=== PATIENT | female | born 1950 | race Caucasian/White ===

== ENCOUNTER 2018-07-24 10:04 | Outpatient (CLI) | payer MEDICARE, OTHER | END 2018-07-24 10:05 | disposition home or self-care (01) | LOC: BICMAMMO 10:04 | PROVIDERS: ATTEND Obstetrics & Gynecology | DX: Z08 Encounter for follow-up examination after completed treatment for malignant neoplasm (principal); Z85.3 Personal history of malignant neoplasm of breast | CPT/HCPCS: 77066; G0279 ==

== ENCOUNTER 2019-08-05 13:00 | Outpatient (CLI) | payer MEDICARE, OTHER ==
--- NOTE | 2019-08-05 14:58 | MMO ---
Bilateral MAMMO Bilat Screen [facility]. CLINICAL HISTORY: Patient is 69 years old and is seen for screening. The patient has no family history of breast cancer. The patient has a history of malignant (generic) in the left breast in 2012. 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 VIEWS: The views performed were: bilateral craniocaudal with tomosynthesis and bilateral mediolateral oblique with tomosynthesis. FILMS COMPARED: The present examination has been compared to prior imaging studies performed at [facility] on 07/24/2018, and at [facility] on 08/12/2013, 08/16/2014 and 08/10/2015. This study has been interpreted with the assistance of computer-aided detection. MAMMOGRAM FINDINGS: There are scattered fibroglandular densities. Right breast: There are no suspicious masses, calcifications or areas of architectural distortion. There are benign appearing calcifications in the right breast. Left breast: There are stable post-operative changes. There are no suspicious masses, suspicious calcifications, or new areas of architectural distortion. IMPRESSION: THERE IS NO MAMMOGRAPHIC EVIDENCE OF MALIGNANCY. A ROUTINE FOLLOW-UP MAMMOGRAM IN 1 YEAR IS RECOMMENDED. THE RESULTS OF THIS EXAM WERE SENT TO THE PATIENT. ACR BI-RADS Category 2 - Benign finding MAMMOGRAPHY NOTE: 1. A negative mammogram report should not delay a biopsy if a dominant of clinically suspicious mass is present. 2. Approximately 10% to 15% of breast cancers are not detected by mammography. 3. Adenosis and dense breasts may obscure an underlying neoplasm. Reported by: DULCE JOHNSON MD Electonically Signed: [id number]
== END 2019-08-05 13:01 | disposition home or self-care (01) ==
LOC: BICMAMMO 13:00
PROVIDERS: ATTEND Physician Assistant
DX: Z12.31 Encounter for screening mammogram for malignant neoplasm of breast (principal); Z85.3 Personal history of malignant neoplasm of breast
CPT/HCPCS: 77063; 77067

== ENCOUNTER 2020-05-24 12:24 | Outpatient (CLI) | payer MEDICARE, OTHER ==
--- NOTE | 2020-05-24 14:27 | MRI ---
MRI LUMBAR SPINE WITHOUT CONTRAST: 05/24/20 INDICATIONS: Lumbar pain. FINDINGS: The lumbar vertebrae maintain normal height and alignment. The vertebral body signal is normal. Degenerative disc changes are noted at L4-5 and L5-S1. Loss of disc space is pronounced at L5-S1. The disc above L4 are preserved. Findings at each level are noted. L1-2: No significant disc bulge. Mild facet arthrosis. No central canal or foraminal stenosis. L2-3: No significant disc bulge. Mild facet arthrosis. No central canal or foraminal stenosis. L3-4: Very mild disc bulge. Moderate facet arthrosis and hypertrophy. No significant central canal or foraminal stenosis. L4-5: There is an annular fissure and a central disc protrusion compressing the thecal sac. Prominent facet and ligamentous hypertrophy. These changes compress the thecal sac resulting in moderate centr al canal stenosis. There appears to be slight superior migration of the disc protrusion seen paracent rally on the left with signal seen extending superiorly along the posterior L4 vertebra in the anteri or spinal canal. No significant foraminal stenosis. L5-S1: There is annular tear with central disc protrusion which abuts the anterior thecal sac and di splaces both traversing S1 nerve roots. There is an associated osteophyte projecting from the posterior superior margin of the S1 vertebrae a t the L5-S1 disc which projects into the spinal canal in conjunction with the small disc protrusion. This osteophyte significantly displaces the traversing left S1 nerve root. No significant central can al stenosis. Mild foraminal encroachment due to the disc bulge and hypertrophic change slightly more prominent on the left. IMPRESSION: There are disc protrusions at L4-5 and L5-S1 as described. POS: AGW
== END 2020-05-24 12:25 | disposition home or self-care (01) ==
LOC: BICMRI 12:24
PROVIDERS: ATTEND Registered Nurse
DX: M54.31 Sciatica, right side (principal); M54.5 Low back pain; M51.26 Other intervertebral disc displacement, lumbar region; M51.27 Other intervertebral disc displacement, lumbosacral region
CPT/HCPCS: 72148

== ENCOUNTER 2020-08-09 12:10 | Outpatient (CLI) | payer MEDICARE, OTHER ==
--- NOTE | 2020-08-09 12:50 | MMO ---
Bilateral MAMMO Bilat Screen [facility]. CLINICAL HISTORY: Patient is 70 years old and is seen for screening. The patient has no family history of breast cancer. The patient has a history of malignant (generic) in the left breast in 2012. 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 VIEWS: The views performed were: bilateral craniocaudal with tomosynthesis and bilateral mediolateral oblique with tomosynthesis. FILMS COMPARED: The present examination has been compared to prior imaging studies performed at [place] [facility] on 07/24/2018 and 08/05/2019, and at [facility] on 08/16/2014 and 08/10/2015. This study has been interpreted with the assistance of computer-aided detection. MAMMOGRAM FINDINGS: There are scattered fibroglandular densities. Finding 1: There are stable benign appearing calcifications seen in both breasts. Finding 2: There are stable post operative changes seen in the left breast. There are no suspicious masses, suspicious calcifications, or new areas of architectural distortion. IMPRESSION: THERE IS NO MAMMOGRAPHIC EVIDENCE OF MALIGNANCY. A ROUTINE FOLLOW-UP MAMMOGRAM IN 1 YEAR IS RECOMMENDED. THE RESULTS OF THIS EXAM WERE SENT TO THE PATIENT. ACR BI-RADS Category 2 - Benign finding MAMMOGRAPHY NOTE: 1. A negative mammogram report should not delay a biopsy if a dominant of clinically suspicious mass is present. 2. Approximately 10% to 15% of breast cancers are not detected by mammography. 3. Adenosis and dense breasts may obscure an underlying neoplasm. Reported by: INO CUELLAR MD Electonically Signed: [id number]
== END 2020-08-09 12:11 | disposition home or self-care (01) ==
LOC: BICMAMMO 12:10
PROVIDERS: ATTEND Registered Nurse
DX: Z12.31 Encounter for screening mammogram for malignant neoplasm of breast (principal); Z85.3 Personal history of malignant neoplasm of breast
CPT/HCPCS: 77063; 77067

== ENCOUNTER 2021-08-10 12:08 | Outpatient (CLI) | payer MEDICARE | END 2021-08-10 12:09 | disposition home or self-care (01) | LOC: BICMAMMO 12:08 | PROVIDERS: ATTEND Registered Nurse | DX: Z12.31 Encounter for screening mammogram for malignant neoplasm of breast (principal); Z13.820 Encounter for screening for osteoporosis; Z78.0 Asymptomatic menopausal state; Z85.3 Personal history of malignant neoplasm of breast; Z98.890 Other specified postprocedural states | CPT/HCPCS: 77063; 77067; 77080 ==

== ENCOUNTER 2022-08-13 12:00 | Outpatient (CLI) | payer MEDICARE, OTHER | END 2022-08-13 12:01 | disposition home or self-care (01) | LOC: BICMAMMO 12:00 | PROVIDERS: ATTEND Registered Nurse | DX: Z12.31 Encounter for screening mammogram for malignant neoplasm of breast (principal); Z98.890 Other specified postprocedural states; Z85.3 Personal history of malignant neoplasm of breast | CPT/HCPCS: 77063; 77067 ==

== ENCOUNTER 2023-09-11 12:47 | Outpatient (CLI) | payer MEDICARE | END 2023-09-11 12:48 | disposition home or self-care (01) | LOC: BICMAMMO 12:47 | PROVIDERS: ATTEND Registered Nurse | DX: Z12.31 Encounter for screening mammogram for malignant neoplasm of breast (principal); Z13.820 Encounter for screening for osteoporosis; Z78.0 Asymptomatic menopausal state; Z85.3 Personal history of malignant neoplasm of breast; Z98.890 Other specified postprocedural states | CPT/HCPCS: 77063; 77067; 77080 ==

== ENCOUNTER 2025-07-27 12:27 | Outpatient (CLI) | payer MEDICARE | END 2025-07-27 12:28 | disposition home or self-care (01) | LOC: BICMAMMO 12:27 | PROVIDERS: ATTEND Registered Nurse | DX: Z12.31 Encounter for screening mammogram for malignant neoplasm of breast (principal); Z85.3 Personal history of malignant neoplasm of breast; Z98.890 Other specified postprocedural states | CPT/HCPCS: 77063; 77067 ==